=== PATIENT | female | born 1990 | race Hispanic/Latino ===

== ENCOUNTER → 2024-08-10 | Outpatient (CLI) | payer OTHER ==
[~2024-08-10] MED LIST: GADOTERATE MEGLUMINE 10 MMOL/20 ML VIAL IV ONE
--- NOTE | 2024-08-10 12:44 | HMCIMG ---
MR PITUITARY WWO (BRAIN WWO) REASON: BENIGN NEOPLASM OF PITUITARY COMPARISON: There are no prior MRI scans available for comparison. TECHNIQUE: Routine cerebral imaging protocol was performed. Images are also obtained pre and post gadolinium contrast infusion. Additional high resolution pre and postcontrast images were obtained of the pituitary gland. CONTRAST: 15 cc MultiHance 529 IV. FINDINGS: There is extensive artifact in the anterior inferior frontal region due to fixed to dental braces. There is normal appearing brain parenchyma. There are no focal mass lesions. There are no areas of abnormal contrast enhancement or abnormal signal intensity. High resolution pre and postcontrast pituitary images show normal findings. There are no focal masses. There are no focal areas of increased or decreased contrast enhancement. Infundibulum is midline. Superior margin of the pituitary is convex. Cavernous sinuses appear unremarkable as do suprasellar cisterns. Ventricles and sulci appear normal. Posterior fossa and brainstem structures appear unremarkable. There is no evidence of intracranial hemorrhage. Diffusion-weighted images are negative for an acute ischemic process. There are no abnormal fluid collections. Extracranial soft tissues appear normal as well. IMPRESSION: 1. Exam is somewhat limited by susceptibility artifact from indwelling 6 to dental braces, anterior inferior frontal lobe structures not well visualized. Otherwise negative and postcontrast MRI of the brain. 3. Negative high-resolution pre and postcontrast pituitary sequences.
== END | disposition home or self-care (01) ==
LOC: RAH 10:44
PROVIDERS: ATTEND Internal Medicine
DX: D35.2 Benign neoplasm of pituitary gland (principal)
CPT/HCPCS: 70553; A9575